=== PATIENT | male | born 1995 | race Caucasian/White ===

== ENCOUNTER 2018-01-30 01:33 | Emergency (ER) | payer SELFPAY ==
--- NOTE | 2018-01-30 01:59 | EDPHY ---
H & P Stated Complaint: swollen left lymphnodes Time Seen by Provider: 01/30/18 01:59 HPI/ROS: HPI CHIEF COMPLAINT: Sore throat. HISTORY OF PRESENT ILLNESS: 22-year-old male, visiting from [place], exchange student, and actually visiting from out of town friends here in [place], presents emergency room in 24-48 hours of worsening sore throat. Could not take the discomfort anymore decided come the emergency room. Denies fever. Does state he has significant pain he swallows. He is able to handle his secretions. Upon evaluation, patient has 3+ to 4+ symmetrical inflamed erythematous tonsils with significant exudate. The uvula appears to be midline. Patient does state 3 weeks ago he had a similar problem was placed on Augmentin it got better. Past Medical History: Denies significant medical history Past Surgical History: No recent surgical history Social History: From [place]. Exchange student. Visiting [place] from out of town. Family History: Noncontributory ROS REVIEW OF SYSTEMS: 10 Systems were reviewed and negative with the exception of the elements mentioned in the history of present illness. Exam Constitutional nontoxic triage nursing summary reviewed, vital signs reviewed , awake/alert. Eyes normal conjunctivae and sclera, EOMI, PERRLA. HENT posterior pharynx tonsillar bed 3+ to 4 equal, erythematous with significant exudate, uvula midline, no Anselmo's, moist mucus membranes, no epistaxis, neck supple/ no meningismus, no raccoon eyes. Respiratory clear to auscultation bilaterally, normal breath sounds, no respiratory distress, no wheezing. Cardiovascular rate normal, regular rhythm, no murmur, no edema, distal pulses normal. Gastrointestinal soft, non-tender, no rebound, no guarding, normal bowel sounds, no distension, no pulsatile mass. Genitourinary no CVA tenderness. Musculoskeletal no midline vertebral tenderness, full range of motion, no calf swelling, no tenderness of extremities, no meningismus, good pulses, neurovascularly intact. Skin pink, warm, & dry, no rash, skin atraumatic. Neurologic awake, alert and oriented x 3, AAOx3, moves all 4 extremities equally, motor intact, sensory intact, CN II-XII intact, normal cerebellar, normal vision, normal speech. Psychiatric normal mood/affect. Heme/Lymph/Immune no lymphadenopathy. Differential Diagnosis: Includes but is not limited to in a particular order tonsillitis, pharyngitis, viral syndrome, URI, strep, mono Medical Decision Making: Plan for this patient he has impressive tonsillitis, IV fluids were given, IV Decadron 10 mg, IV Toradol for pain control, basic blood work, re-evaluate. Re-evaluation: 0441: Patient is feeling much better after IV Decadron, IV Toradol and IV fluids. Resting comfortably. [place] positive. Labs reviewed. High white count. Strep test negative rapid [place] positive and high white count most likely consistent for mononucleosis causing this pharyngitis. 0525: Discussed the case in detail with ENT doctor under. Agrees with Decadron and pain control. Believes he is okay to fly today however discussed this with the patient I do recommend given that his flight is in 2 and 0.5 hr I recommend he rest today stays well hydrated drinks lots of fluids takes anti- inflammatory pain medicine and steroids. And he is feeling better tomorrow and no further sore throat or throat pain he can fly. Airline excuse provided. Blood work reviewed shows high white count and mononucleosis with a lymphocytic process. Plan for prescription for ibuprofen and Decadron Patient is feeling much better. He is able swallow appropriately. No drooling. No trouble breathing. No stridor. Able to talk appropriately. Return precautions discussed with the patient Source: Patient - Medical/Surgical History Hx Asthma: No Hx Chronic Respiratory Disease: No Hx Diabetes: No Hx Cardiac Disease: No Hx Renal Disease: No Hx Cirrhosis: No Hx Alcoholism: No Hx HIV/AIDS: No Hx Splenectomy or Spleen Trauma: No - Social History Smoking Status: Never smoked Constitutional: Initial Vital Signs Temperature (C) 37.6 C 01/30/18 01:37 Heart Rate 119 H 01/30/18 01:37 Respiratory Rate 20 01/30/18 01:37 Blood Pressure 119/77 01/30/18 01:37 O2 Sat (%) 93 01/30/18 01:37 Allergies/Adverse Reactions: No Known Allergies Allergy (Unverified 01/30/18 01:39) Home Medications: Medication Instructions Recorded Dexamethasone [Decadron 4 MG (*)] 8 mg PO DAILY #8 tab 01/30/18 Ibuprofen [Motrin (*)] 800 mg PO Q6-8PRN #10 tab 01/30/18 Medical Decision Making - Data Points Laboratory Results: Laboratory Results 01/30/18 01:55 01/30/18 01:55 01/30/18 01/30/18 01/30/18 Unknown 02:10 01:55 WBC RBC Hgb Hct MCV MCH MCHC RDW Plt Count MPV Neut % (Auto) Lymph % (Auto) [place] % (Auto) Eos % (Auto) Baso % (Auto) Nucleat RBC Rel Count Absolute Neuts (auto) Absolute Lymphs (auto) Absolute Monos (auto) Absolute Eos (auto) Absolute Basos (auto) Absolute Nucleated RBC Immature Gran % Immature Gran # RBC/WBC/PLT Morphology Atypical Lymphocytes Platelet Estimate Polychromasia Smear Review By ESR Sodium Potassium Chloride Carbon Dioxide Anion Gap BUN Creatinine Estimated GFR Glucose Calcium C-Reactive Protein Monoscreen POSITIVE H (NEGATIVE) Group A Strep Screen NEGATIVE (NEGATIVE) Group A Strep DNA Pending 01/30/18 01/30/18 01:55 01:55 WBC 21.74 10^3/uL H 10^3/uL (3.80-9.50) RBC 4.58 10^6/uL 10^6/uL (4.40-6.38) Hgb 14.5 g/dL g/dL (13.7-17.5) Hct 41.1 % % (40.0-51.0) MCV 89.7 fL fL (81.5-99.8) MCH 31.7 pg pg (27.9-34.1) MCHC 35.3 g/dL g/dL (32.4-36.7) RDW 13.1 % % (11.5-15.2) Plt Count 209 10^3/uL 10^3/uL (150-400) MPV 10.0 fL fL (8.7-11.7) Neut % (Auto) 35.1 % L % (39.3-74.2) Lymph % (Auto) 54.4 % H % (15.0-45.0) [place] % (Auto) 9.2 % % (4.5-13.0) Eos % (Auto) 0.1 % L % (0.6-7.6) Baso % (Auto) 0.9 % % (0.3-1.7) Nucleat RBC Rel Count 0.0 % % (0.0-0.2) Absolute Neuts (auto) 7.63 10^3/uL H 10^3/uL (1.70-6.50) Absolute Lymphs (auto) 11.83 10^3/uL H 10^3/uL (1.00-3.00) Absolute Monos (auto) 2.00 10^3/uL H 10^3/uL (0.30-0.80) Absolute Eos (auto) 0.02 10^3/uL L 10^3/uL (0.03-0.40) Absolute Basos (auto) 0.20 10^3/uL H 10^3/uL (0.02-0.10) Absolute Nucleated RBC 0.00 10^3/uL 10^3/uL (0-0.01) Immature Gran % 0.3 % % (0.0-1.1) Immature Gran # 0.07 10^3/uL 10^3/uL (0.00-0.10) RBC/WBC/PLT Morphology TNP Atypical Lymphocytes 2+ H Platelet Estimate TNP Polychromasia 1+ H Smear Review By Pending ESR 18 MM/HR H MM/HR (0-15) Sodium 136 mEq/L mEq/L (135-145) Potassium 4.3 mEq/L mEq/L (3.3-5.0) Chloride 96 mEq/L L mEq/L (97-110) Carbon Dioxide 28 mEq/l mEq/l (22-31) Anion Gap 12 mEq/L mEq/L (6-14) BUN 20 mg/dL mg/dL (7-23) Creatinine 1.3 mg/dL mg/dL (0.7-1.3) Estimated GFR > 60 Glucose 109 mg/dL H mg/dL (70-100) Calcium 9.5 mg/dL mg/dL (8.5-10.4) C-Reactive Protein 72.8 mg/L H mg/L (<10.0) Monoscreen Group A Strep Screen Group A Strep DNA Medications Given: Discontinued Medications Dexamethasone (Decadron Injection) 10 mg IVP EDNOW ONE Stop: 01/30/18 02:05 Last Admin: 01/30/18 02:07 Dose: 10 mg Sodium Chloride (Ns) 1,000 mls @ 0 mls/hr IV EDNOW ONE; Wide Open PRN Reason: Protocol Stop: 01/30/18 02:04 Last Admin: 01/30/18 02:08 Dose: 1,000 mls Sodium Chloride (Ns) 1,000 mls @ 0 mls/hr IV ONCE ONE PRN Reason: Wide Open Stop: 01/30/18 02:05 Last Admin: 01/30/18 02:17 Dose: 1,000 mls Ketorolac Tromethamine (Toradol) 15 mg IVP EDNOW ONE Stop: 01/30/18 02:05 Last Admin: 01/30/18 02:07 Dose: 15 mg Departure - Departure Disposition: Home, Routine, Self-Care Clinical Impression: Mononucleosis Condition: Fair Instructions: Mononucleosis (ED) Additional Instructions: 1. Stay well-hydrated drink lots of fluids. 2. Steroids as prescribed. 3. Anti-inflammatories as prescribed 4. Return if worse. 5. Follow up with ENT. Referrals: NONE *PRIMARY CARE P,. [Primary Care Provider] - As per Instructions Emile Almonte MD [Medical Doctor] - As per Instructions Stand Alone Forms: Airline Excuse Prescriptions: Dexamethasone [Decadron 4 MG (*)] 8 mg PO DAILY #8 tab Ibuprofen [Motrin (*)] 800 mg PO Q6-8PRN #10 tab
[2018-01-30] MEDS ORDERED: NS 1,000 ML IV ONE ×2 (02:03→02:04)
[2018-01-30] MEDS ORDERED: DEXAMETHASONE 4 MG/ML VIAL ONE (02:04)
[2018-01-30] MEDS ORDERED: KETOROLAC 15 MG/1 ML SDV IVP ONE (02:04)
[2018-01-30] MEDS ORDERED: DEXAMETHASONE 10 MG/ML VIAL IVP ONE (02:04)
[2018-01-30 02:09] LABS: PLATELET COUNT 209 10^3/uL (150-400)
[2018-01-30 05:35] VITALS: BP 120/67
== END 2018-01-30 05:35 | disposition home or self-care (01) ==
DX: B27.90 Infectious mononucleosis, unspecified without complication (principal)
CPT/HCPCS: 96374; J1100; J1885